=== PATIENT | male | born 1995 | race Caucasian/White ===

== ENCOUNTER 2016-07-28 15:18 | Emergency (ER) | payer MEDICAID ==
[2016-07-28 15:27] VITALS: BP 115/78
--- NOTE | 2016-07-28 15:37 | ED PDOC ---
Arrival/HPI - General Chief Complaint: Fever Time Seen by Provider: 07/28/16 15:29 Historian: Patient - History of Present Illness Narrative History of Present Illness (Text): 07/28/16 15:34 20yo male with no PMhx who present with complaint of fever, cough, chills, bodyache. States he had diarrhea yesterday and took unknown medication from [place] for it. He have not had diarrhea today. Did not take any medication today. Denies chest pain, nausea, vomiting, abdominal pain, sore throat, sick contact, travel. Past Medical History - Provider Review Nursing Documentation Reviewed: Yes - Infectious Disease Hx of Infectious Diseases: None - Psychiatric Hx Substance Use: No - Anesthesia Hx Anesthesia: No Family/Social History - Physician Review Nursing Documentation Reviewed: Yes Family/Social History: Unknown Family HX Smoking Status: Unknown If Ever Smoked Hx Alcohol Use: No Hx Substance Use: No Allergies/Home Meds Allergies/Adverse Reactions: Allergies No Known Allergies Allergy (Verified 07/28/16 15:27) Home Medications: Home Meds Medication Instructions Recorded Confirmed No Known Home Med 07/28/16 07/28/16 Review of Systems - Physician Review All systems were reviewed & negative as marked: Yes - Review of Systems Constitutional: Fevers Eyes: Normal ENT: Normal Respiratory: Cough. absent: SOB, Sputum, Wheezing Cardiovascular: Normal Gastrointestinal: Normal Genitourinary Male: Normal Musculoskeletal: Normal Skin: Normal Neurological: Normal Endocrine: Normal Hemo/Lymphatic: Normal Psychiatric: Normal Physical Exam Vital Signs Reviewed: Yes Vital Signs Temp Pulse Resp BP Pulse Ox 07/28/16 15:46 100.6 F H 07/28/16 15:25 100.6 F H 106 H 18 115/78 98 07/28/16 15:23 100.6 F H 106 H 18 115/78 98 Temperature: Febrile Blood Pressure: Normal Pulse: Tachycardic Respiratory Rate: Normal Appearance: Positive for: Well-Appearing, Non-Toxic, Comfortable Pain Distress: None Mental Status: Positive for: Alert and Oriented X 3 - Systems Exam Head: Present: Atraumatic, Normocephalic Pupils: Present: PERRL Extroacular Muscles: Present: EOMI Conjunctiva: Present: Normal Mouth: Present: Moist Mucous Membranes Neck: Present: Normal Range of Motion Respiratory/Chest: Present: Clear to Auscultation, Good Air Exchange. No: Respiratory Distress, Accessory Muscle Use, Wheezes, Decreased Breath Sounds, Rales, Retracting, Rhonchi, Tachypneic Cardiovascular: Present: Regular Rate and Rhythm, Normal S1, S2. No: Murmurs Abdomen: Present: Normal Bowel Sounds. No: Tenderness, Distention, Peritoneal Signs Back: Present: Normal Inspection Upper Extremity: Present: Normal Inspection. No: Cyanosis, Edema Lower Extremity: Present: Normal Inspection. No: Edema Neurological: Present: GCS=15, CN II-XII Intact, Speech Normal Skin: Present: Warm, Dry, Normal Color. No: Rashes Psychiatric: Present: Alert, Oriented x 3, Normal Insight, Normal Concentration Medical Decision Making ED Course and Treatment: 07/28/16 16:37 PT presented for stated history. He was afebrile and in no distress in ED. He reported diarrhea yesterday, but not today. Chest xray was negative. Rapid flu was negative. Symptoms likely secondary to viral syndrome. Result was DW the pt. DC home with antitussive and advised to take antipyretics as needed for fever. Referred to his PMD. TRT ED for any new or worsening symptoms. - Lab Interpretations Lab Results: Lab Results 07/28/16 15:42: Influenza Typ A,B (EIA) Negative for flu a/b - RAD Interpretation Radiology Orders: 07/28/16 15:32 CHEST TWO VIEWS (PA/LAT) [RAD] Stat - Medication Orders Current Medication Orders: Discontinued Medications Acetaminophen (Tylenol 325mg Tab) 650 mg PO STAT STA Stop: 07/28/16 15:34 Last Admin: 07/28/16 15:46 Dose: 650 MG [facility] Pain/Vitals Document 07/28/16 15:46 [email or web address] (Rec: 07/28/16 15:51 [email or web address] [facility] [place] Pain Reassessment Is This A Pain ReAssessment? No Sleep Is patient sleeping during reassessment? No Presence of Pain Presence of Pain No Vitals Temperature (97.6 F-99.6 F) 100.6 F Temperature Source Oral Disposition/Present on Arrival - Present on Arrival Any Indicators Present on Arrival: No History of DVT/PE: No History of Uncontrolled Diabetes: No Urinary Catheter: No History of Decub. Ulcer: No History Surgical Site Infection Following: None - Disposition Have Diagnosis and Disposition been Completed?: Yes Diagnosis: Viral infection Disposition: HOME/ ROUTINE Disposition Time: 16:40 Patient Plan: Discharge Condition: STABLE Discharge Instructions (ExitCare): Viral Syndrome (ED) Additional Instructions: Follow up with your doctor Return to ED for any new or worsening symptoms
[2016-07-28 17:01] VITALS: PULSE 100; RESP 16; O2SAT 99
[2016-07-28 17:09] VITALS: TEMP 99
--- NOTE | 2016-07-29 09:41 | RAD ---
HISTORY: cough COMPARISON: No prior. TECHNIQUE: Chest PA and lateral FINDINGS: LUNGS: No active pulmonary disease. PLEURA: No significant pleural effusion identified. No pneumothorax apparent. CARDIOVASCULAR: Normal. OSSEOUS STRUCTURES: No significant abnormalities. VISUALIZED UPPER ABDOMEN: Normal. OTHER FINDINGS: None. IMPRESSION: No active disease.
== END 2016-07-28 17:08 | disposition home or self-care (01) ==
LOC: ED 15:18
DX: B34.9 Viral infection, unspecified (principal)